=== PATIENT | male | born 1955 | race Caucasian/White ===

== ENCOUNTER 2019-09-17 11:20 | Emergency (ER) | payer MEDICAID, MEDICARE ==
[~2019-09-17] VITALS: Ht 170.2 cm; Wt 74.8 kg
--- NOTE | 2019-09-17 11:55 | NUR ---
Patient discharged to home in stable conditon. Written and verbal after care instructions given. Patient verbalizes understanding of instructions.pt walks in steady gait.
== END 2019-09-17 11:25 | disposition home or self-care (01) ==
LOC: ER 11:20
DX: R05 Cough (principal)
CPT/HCPCS: A4663